=== PATIENT | male | born 1945 | race Caucasian/White ===

== ENCOUNTER 2016-06-01 05:55 | Day surgery (SDC) | payer MEDICARE ==
--- NOTE | 2016-05-30 14:52 | PCM.ANEPRE ---
Anesthesia Pre-Op Review Anesthesia Recommendations: Proceed with Procedure Additional Comments 70 y/o male with paroxysmal A fib, IDDM, BPH. Has been seeing a animal nutrition teacher, Dr. Rafita Garrido through [facility]. There has been some difficult with anticoagulation as the patient becomes has n/v after taking the prescribed anticoagulants and stops taking them. He has continued to take ASA. The patient had a heart monitor for 13 days around 01/21/16 without a single episode of AF. The patient had an echo on 06/10/15 with EF 55% and no significant valvular disease. The patient has difficulty remembering appointments and arrives at the cardiology office when he doesn't have an appointment. Dr. Garrido does not report any acute coronary syndromes and the patients NSQIP is < 1. The patient also has significantly worsening BPH with difficulty urinating per Dr. Boyd's note - so it does appear as if the surgery is urgent. We can proceed with surgery per ACC/AHA perioperative cardiac guidelines pending evaluation by the DOS anesthesiologist. Nikolai García MD May 30, 2016 14:52
[~2016-06-01] VITALS: Ht 182.9 cm; Wt 110.4 kg
[2016-06-01] VITALS (18 sets, daily range): BP systolic 134–183; BP diastolic 69–93; PULSE 76–103; RESP 11–19; O2SAT 90–100
[2016-06-01] MEDS: Lactated Ringer's 1,000 ML IV SCH ×6 (05:00→19:43)
[~2016-06-01 05:55] MED LIST: ALFU10TA11 PO; ATOR20TA PO; INSU100I13 SUBQ; INSU100I18 SUBQ; LISI40TA PO; METO25TA6 PO; MULT-1018 PO; TERA10CA5 PO
[2016-06-01] MEDS ORDERED: Ondansetron 2 mg/mL 2 mL Inj ONE (05:56)
[2016-06-01] MEDS ORDERED: Phenylephrine/NS-PF 100 mCg/mL 5 mL Syringe IVPUSH ONE (05:56)
[2016-06-01] MEDS ORDERED: CeFAZolin Inj 2 GM in IV Premix 1 EACH IV ONE (06:00)
--- NOTE | 2016-06-01 06:46 | PCM.HPANE ---
Patient Data Surgeon Admitting Provider: Attending Provider:Tara Boyd MD Primary Care Physician:Ambrocio Vanessa MD Other Provider:Kyler Page Anesthesia Reason for Visit Enlarged Prostate W/Lower Urinary Tract Symptom Ht/WT & BMI Height (Feet): 6 Height (Inches): 0 Weight (Kilograms): 116.84 Body Mass Index 34.00 Allergies Coded Allergies: No Known Allergies (Unverified , 05/29/16) Past Anesthesia History Anesthesia History: Denies:: Abnormal Airway, Anesthesia Reactions (post op intractible hiccuping - itching ), Difficult Intubation, Fam Anesthesia Reaction Diabetes History Hx Diabetes?: Yes (Hgb A1C 9.3- last summer) Type of Diabetes: Type II Glycemic Control: Insulin & Oral Medication MRSA MRSA: No Medications Hypertension Medication: Yes Home Meds Incl Beta Carmela: Yes Reported Medications Insulin Glargine,Hum.rec.anlog (Toujeo Solostar)300 Unit/Ml (1.5 Ml) Insuln.pen40 U Sq Qam #5 06/01/16 Terazosin 10 Mg Nrcqftq42 Mg PO HS Ref 0 05/29/16 Multivitamin (Multi Vitamin Daily)1 Each Tablet1 Each PO DAILY 30 Days Ref 0 05/29/16 Metoprolol Tartrate 25 Mg Omfbzk80.5 Mg PO DAILY 30 Days Ref 0 05/29/16 Lisinopril 40 Mg Ttytrz39 Mg PO DAILY 30 Days Ref 0 05/29/16 Insulin Lispro (HumaLOG U100 Insulin Pen)100 Unit/1 Ml Insuln.pen1 Unit SUBQ blood glucose #1 PENINJ Ref 0 Blood Sugar Lispro Correction <151 0 units 151-175 1 unit 176-200 2 units 201-225 3 units 226-250 4 units 251-275 5 units 276-300 6 units 301-325 7 units 326-350 8 units 351-375 9 units 376-400 10 units >400 12 units Check blood sugars before meals and at bedtime. Use correction factor only before meals. 05/29/16 Atorvastatin (Lipitor)20 Mg Laeavt97 Mg PO DAILY Ref 0 05/29/16 Discontinued Reported Medications Insulin Glargine (Lantus U100 Solostar Insulin Pen)100 Unit/1 Ml Insuln.pen1 Unit SUBQ QPM #1 PENINJ Ref 0 05/29/16 Alfuzosin ER 10 Mg Tab.er.24h10 Mg PO DAILY 2/27/17 History HEENT History: Positive for:: Hearing Problem Denies:: Abnormal Airway Cataracts Difficult Intubation Dysphagia Glaucoma Sinus Problem TMJ Hx of Heart Problems?: Yes Cardiovascular History: Positive for:: Hypertension Denies:: AICD Abdominal Aortic Aneurism Atrial Fibrillation (atrial flutter one year) Cardiac Surgery Chest Pain Congestive Heart Failure Coronary Artery Disease Edema Heart Murmur Irregular Heartbeat Pacemaker Peripheral Vascular Rheumatic Fever Valvular Heart Disease (echo ef 55%- 06/2015) Hx of Respiratory Problem?: Yes Respiratory History: Positive for:: Dyspnea (related to atrial flutter episode ) Denies:: Asthma COPD Emphysema Oxygen Administration Pneumonia Tuberculosis Use of C-PAP Machine Use of Inhalers / NEBS Hx Neurologic Problems?: No Neurological History: Denies:: Alzheimer's Disease CVA Dementia Dizziness Headaches Multiple Sclerosis Parkinson's Disease Seizures Hx of GI Problems?: Yes Gastrointestinal History: Positive for:: Gastroesphageal Reflux Heartburn Denies:: Cirrhosis Gall Bladder Disease Gastrointestinal Bleeding Hepatitis Hiatal Hernia Other GI Pertinent History: when eats- "sneeze like crazy" after every meal Hx of Problems?: Yes Genitourinary History: Denies:: Kidney Stones Urinary Tract Infection Male Hx: Positive for:: Prostate Problems (current admission problem) Skin History: Denies:: History Skin Disorders? Pressure Ulcers Hx Musculoskeletal Problems?: Yes Musculoskeletal History: Positive for:: Joint Replacement (knee replacement 2008) Osteoarthritis (right hand, foot arches, knees) Denies:: Back Injury Fibromyalgia Musculoskeletal Trauma Rheumatoid Arthritis Systemic Lupus Hx of Psycho/Social Problems?: No Psycho Social History: Denies:: Anxiety Hx Depression Hx Surgeries?: Yes (knee replacement, appy, tonsil) Hx Any Other Health Problems?: Yes Other History: Denies:: Cancer Thyroid Disease History Blood Transfusions: Positive for:: Accept Blood Products? Denies:: Blood Transfuse Reaction Blood Transfusions Hx Diabetes: Yes (Hgb A1C 9.3- last summer) Hx Alcohol Use: NoHx Substance Use: NoHave You Smoked inLast 12 mo: No Stop/Bang P-Blood Pressure: treated: Yes B- Body Mass Index > 35 kg/m2: Yes A- Age over 50: Yes N- Neck Large Circumference: No G- Gender Male: Yes LEWIS Risk Assessment: High Risk, =/>3 Yes LEWIS Category 2: Yes Risk Assessment Category Category 1A: Patient has history of documented sleep apnea, and HAS NOT received any narcotic, sedative or anesthesia administration during this stay. Category 1B: Patient has history of documented sleep apnea, and HAS received any narcotic , sedative or anesthesia administration during this stay Category 2: Patient has SUSPECTED Obstructive Sleep Apnea, and HAS received any narcotic , sedative or anesthesia administration during this stay. Category 3: Patient has SUSPECTED Obstructive Sleep Apnea and HAS NOT received narcotic, sedative or anesthesia administration during this stay. Category 4: Outpatient in Procedural Areas with known sleep apnea or who screen positive for High Risk via the STOP/BANG questionnaire. Exam Exam General Appearance: Alert, Oriented X3, Cooperative, No Acute Distress HEENT/AIRWAY: MP 2 Lungs: Clear to Auscultation, Normal Air Movement Heart: Exam Unremarkable, Regular Rate/Rhythm, No Murmurs/Rubs/Gallops Plan Impression Patient chart reviewed, patient interviewed and anesthestic plan with risks, benefits, and alternatives discussed, and informed consent obtained. ASA Physical Status: ASA3 Severe Disease Anesthetic Plan: SAB Bene/Risks/Altern/Consents: Yes HP Complete Prior to Induction: Yes Payam Michel MD Jun 01, 2016 06:46
[2016-06-01] MEDS ORDERED: INSU300I SQ (06:50)
[2016-06-01] MEDS ORDERED: Lactated Ringer's 500 ML IV PRN (07:48)
[2016-06-01] MEDS ORDERED: Lactated Ringer's 1,000 ML IV SCH (07:48)
[2016-06-01] MEDS ORDERED: EPHEDrine Sulfate 50 mg/mL Inj IVPUSH PRN (07:50)
[2016-06-01] MEDS ORDERED: hydrALAZINE 20 mg/mL Inj IVPUSH PRN (07:50)
[2016-06-01] MEDS ORDERED: Labetalol 5 mg/mL 4 mL Inj IV PRN (07:50)
[2016-06-01] MEDS ORDERED: Ondansetron 2 mg/mL 2 mL Inj IVPUSH PRN ×2 (07:50→13:00)
[2016-06-01] MEDS ORDERED: HYDROmorphone 1 mg/mL Inj IVPUSH PRN (07:50)
[2016-06-01] MEDS ORDERED: Atropine 0.4 mg/mL Inj IVPUSH PRN (07:50)
[2016-06-01] MEDS ORDERED: MetoCLOpramide 5 mg/mL 2 mL Inj IVPUSH PRN ×2 (07:50→13:00)
[2016-06-01] MEDS ORDERED: fentaNYL-PF 50 mCg/mL 2 mL Inj IVPUSH PRN (07:50)
[2016-06-01] MEDS ORDERED: Phenylephrine 10,000 mCg/mL Inj IVPUSH PRN (07:50)
[2016-06-01] MEDS ORDERED: Dexamethasone 4 mg/mL Inj IVPUSH PRN (07:50)
[2016-06-01] MEDS ORDERED: HYDROcodone-APAP 5-325 mg Tablet PO PRN (08:40)
[2016-06-01] MEDS ORDERED: Polyethylene Glycol (PEG) 17 Gm Powder PO PRN (08:40)
[2016-06-01] MEDS ORDERED: Belladonna Alk-Opium 60 mg Rectal Suppository RECTAL PRN (08:40)
--- NOTE | 2016-06-01 09:18 | PCM.ANEP1 ---
Post Anesthesia Phase 1 PACU Phase 1 Assessment Vital Signs Vital Signs Date Time Temp Pulse Resp B/P Pulse Ox O2 Delivery O2 Flow Rate FiO2 06/01/16 08:45 12 98 06/01/16 08:34 36.6 77 11 162/88 99 Simple Mask 8 06/01/16 07:02 36.7 96 16 134/79 95 Room Air 06/01/16 07:02 CPAP/BIPAP Anesthetic Administered: SAB Level of Alertness: Awake, talking OCONNELL's with Equal Strength: No Pain: No Nausea or Vomiting: No Oxygen Delivery: Simple Mask Lungs: Clear to Auscultation, Normal Air Movement Dermatome Level: T8 (Costal Margin) Payam Michel MD Jun 01, 2016 09:18
[2016-06-01] MEDS ORDERED: Lactated Ringer's 1,000 ML IV ONE (10:35)
--- NOTE | 2016-06-01 10:47 | OP ---
[address] [address] OPERATIVE REPORT PATIENT: MIGUE DEE : 1945 MR#: [id number] ADMIT: 06/01/2016 JOB ID: [id number] DATE OF SURGERY: 06/01/2016 SURGEON: Tara Boyd MD. PREOPERATIVE DIAGNOSIS(ES): 1. Benign prostatic hypertrophy. 2. Urinary retention. POSTOPERATIVE DIAGNOSIS(ES): 1. Benign prostatic hypertrophy. 2. Urinary retention. PROCEDURE: Transurethral resection of prostate. ANESTHESIA: Spinal anesthetic. ANESTHESIOLOGIST: Payam Michel MD. DESCRIPTION OF PROCEDURE: Under spinal anesthetic, the patient was placed in lithotomy position. Genitalia prepped and draped in a sterile manner. The urethra was dilated to 28-Namibian with Kate sounds. A 26-Namibian Estrada type resectoscope was introduced into the bladder. Prostate was circumferentially resected to capsule. After removal of chips and achieving hemostasis, a 24-Namibian 3-way Olson catheter was inserted into the bladder. The patient tolerated the procedure well. The estimated blood loss less than 50 cc. The patient left the operating room in good condition with clear saline irrigations.
[2016-06-01] MEDS: Insulin GLARgine 100 Unit/mL Syringe SUBQ SCH (11:31)
--- NOTE | 2016-06-01 11:59 | PCM.ANEP2 ---
Post Anesthesia Evaluation ASA/CMS Post Anesthesia VS in Patient's Normal Range?: Yes Resp Stable; Airway Patent?: Yes CV Function & Hydration Stable: Yes Mental Status Recovered?: Yes Pain control Satisfactory?: Yes N/V Control Satisfactory?: Yes Payam Michel MD Jun 01, 2016 11:59
--- NOTE | 2016-06-01 12:00 | NUR ---
POST-OP Patient received from PACU via a gurney. Transferred independently in the bed. IVF ongoing. CBI ongoing. Cranberry colored UO noted without any clots. Patient denies pain and stated that he only has discomfort in the catheter site but does not need any pain medication for this. Vomited X 1 upon arrival to the floor. Bile colored emesis noted. Patient stated he felt better after and did not require any nausea medication. Denies SOB. Oriented to room, call light and bathroom. (Pls. refer to post-op grid for assessments).
[2016-06-01] MEDS ORDERED: Glucose 40% Oral Gel 15 Gm Tube PO PRN (12:15)
[2016-06-01 14:12] LABS: COLOR,URINE BLOODY (YELLOW)
[2016-06-01 14:14] LABS: APPEARANCE,URINE CLOUDY (CLEAR,HAZY); OCCULT BLOOD,URINE LARGE (NEGATIVE); UROBILINOGEN,URINE NORMAL (NORMAL)
[2016-06-01] MEDS: Insulin LISPRO 300 Unit/3 mL Inj SUBQ SCH ×2 (16:56→22:50)
[2016-06-02 00:46] VITALS: BP 162/89; PULSE 92; RESP 18; O2SAT 98
--- NOTE | 2016-06-02 04:03 | NUR ---
Olson Olson draining dark pink to dark red during shift. Drip rate increased when dark red. No clots visualized.
[2016-06-02] MEDS: Lactated Ringer's 1,000 ML IV SCH (04:18)
[2016-06-02 04:56] VITALS: BP 161/82; PULSE 88; RESP 18; O2SAT 97
[2016-06-02 06:27] LABS: Mean Corpuscular Volume 93.1 fL (81-100)
--- NOTE | 2016-06-02 08:24 | PROG NOTE ---
[address] [address] PROGRESS NOTE PATIENT: MIGUE DEE : 1945 MR#: [id number] ADMIT: 06/01/2016 JOB ID: [id number] DATE: 06/02/2016 SUBJECTIVE: The patient is postop day one TURP having been admitted to [facility] yesterday for an elective TURP. His urine is clear with bladder irrigations on slow. Plan is to remove the Olson catheter today and discharge home when voiding. I will see him in the office next week in followup.
[2016-06-02] MEDS: Insulin GLARgine 100 Unit/mL Syringe SUBQ SCH (08:30)
[2016-06-02] MEDS: Insulin LISPRO 300 Unit/3 mL Inj SUBQ SCH ×2 (08:56→12:00)
[2016-06-02 15:11] VITALS: BP 158/84; PULSE 90; RESP 16; O2SAT 93
--- NOTE | 2016-06-02 19:51 | NUR ---
Olson /discharge Patient had Olson dc'd this am for discharge but was unable to void adequately post removal so bladder scan done . Post void residual as high as [address] Byod called and orders to replace Olson 20 Filipino with 30 ml balloon. Olson replaced patient tolerated well. Patient given Olson and leg bag teaching and agreed to understanding it. Patient given hard copy of script for pain med. Pt has follow up appointment already scheduled.
--- NOTE | 2016-06-05 12:16 | PATH ---
SURGICAL PATHOLOGY Attending Physician:Tara Boyd MD () CASE STATUS: Signed Out PATIENT NAME: MIGUE DEE PID: [id number] : 1945 DATE COLLECTED:06/01/2016 15:29 SPECIMEN: Prostate, Chips CLINICAL HISTORY: ENLARGED PROSTATE WITH LOWER URINARY TRACT SYMPTOMS 1).RESECTED PROSTATE FINAL DIAGNOSIS: 1.PROSTATE TISSUE (18.1 GRAMS): FIBROGLANDULAR HYPERPLASIA. NO EVIDENCE OF MALIGNANCY. ICD10 CODE N40.1 GROSS DESCRIPTION: The specimen is received in formalin, labeled with the patient's name, sublabeled as resected prostate, and consists of multiple fragments of carson-pink rubbery prostatic tissue (18.1 g, 7.5 x 5.2 x 1.3 cm this in aggregate). Section code: (A-H) prostatic tissue, scheduling representative. 06/01/16 MICRO DESCRIPTION: See diagnosis. ICD-9 CODES: CPT CODES: 1: 76620 Electronically Signed Out Yemi Peacock MD [facility] [address], [place] [address] Technical component performed at [facility], [address] [place] [address] Ave[address], [place], [address]
== END 2016-06-02 16:10 | disposition home or self-care (01) ==
LOC: SAS 05:55 → OSC 11:09 → SAS 06-02 16:10
PROVIDERS: ATTEND Urology
PROC: 0VT04ZZ Resection of Prostate, Percutaneous Endoscopic Approach (ICD-10-PCS; principal; 2016-06-01 07:30)
DX: N40.1 Benign prostatic hyperplasia with lower urinary tract symptoms (principal); R33.8 Other retention of urine; E11.9 Type 2 diabetes mellitus without complications; Z79.4 Long term (current) use of insulin; Z79.82 Long term (current) use of aspirin; R35.1 Nocturia; R39.198 Other difficulties with micturition; R35.0 Frequency of micturition; I48.0 Paroxysmal atrial fibrillation
CPT/HCPCS: 36415; 52601; 81000; 85027; J0690; J1815; J2250; J2370; J2405; J2765; J7120